=== PATIENT | male | born 1950 | race Caucasian/White ===

== ENCOUNTER 2024-04-17 05:56 | Day surgery (SDC) | payer MEDICARE, OTHER, SELFPAY ==
--- NOTE | 2024-03-19 11:21 | CM ---
Addendum entered by Briana Quintana 04/10/24 10:39:
Spoke again with patient. He has a rolling walker, firm cushion and cane. His is getting him a raised toilet seat, long handled sponge and grabber today.
Original Note:
Patient is scheduled for an elective L THR on 04/17/24- he is a same day patient. Spoke with patient prior to surgery. Patient had R TKR at (also as a same day patient) in 2019. Reintroduced role of Orthopedic Navigator. Patient reports that he
lives with his in a one story home. There is one step to enter. He currently functions independently. He has a cane and commode. He had VN services through [facility]. PCP is Hanny Marmolejo.
Discussed orthopedic program and post surgical plans. Reviewed that he will have VN services initially (medicare.gov website and ratings reviewed) and will then start outpatient PT. Patient selects [facility] (face sheet faxed to [facility] to facilitate
confirmation of benefits) for his home care needs and will go to [facility] for outpatient PT.
Patient is in agreement with plan and states that his will be home with him.
Patient will complete online education.
Plan: Orthopedic Navigator will remain available to assist with the care of patient and will reassess discharge needs after surgery.
[2024-03-27 07:02] VITALS: BMI 29.3
[2024-03-27 08:40] LABS: Hematocrit 39.8 % (39.0-52.0); Hemoglobin 13.5 g/dL (13.0-18.0); Mean Corp Hgb Conc. 33.9 g/dL (33.0-37.0); Mean Corpuscular Hgb 32.6 pg (27.0-31.0); Mean Corpuscular Volume 96.1 fL (80.0-94.0); Platelet Count 172 10^3/uL (130-400); Red Blood Cell Count 4.14 10^6/uL (4.70-6.10); Red Cell Dist. Width 12.9 % (11.5-14.5); White Blood Cell Count 6.7 10^3/uL (4.8-10.8)
[2024-03-27 09:14] LABS: ALT (SGPT) 80 U/L (0-50); AST (SGOT) 58 U/L (17-59); Albumin 4.1 g/dl (3.5-5.0); Alkaline Phosphatase 74 U/L (38-126); Blood Urea Nitrogen 20 mg/dl (9-20); Calcium 9.5 mg/dl (8.4-10.2); Carbon Dioxide 23 mmol/L (22-30); Chloride 102 mmol/L (98-107); Estimated Creatinine Clearance 88 ml/min; Glucose 264 mg/dl (70-99); Potassium 4.9 mmol/L (3.5-5.1); Sodium 136 mmol/L (135-145); Total Bilirubin 0.6 mg/dl (0.2-1.3); Total Protein 7.1 g/dl (6.3-8.2); eGFR > 60.00
[2024-03-27 12:02] LABS: Glycohemoglobin (HgbA1c) 7.6 % (4.0-5.6)
[2024-03-27 14:46] VITALS: BMI 29.3
--- NOTE | 2024-04-03 08:47 | SLEEP.APNEA ---
Sleep Apnea Order
-
Patient screened as High Risk for Sleep Apnea on Stop Bang Questionnaire. Patient referred to [facility] for Pre-Study.

Name: CODY OSBORNE
: 1950
Home Phone: Use [email or web address] instead
Cell Phone: [f_Reg Other Phone]

Address: [address] [place] [address]
City: [place]
State: [place]
Zip: [f_[facility] Zip]
Family Physician: Hanny Marmolejo
Height 6 ft
Actual Weight 98 kg
Body Mass Index (BMI) 29.3
Ordering Provider: Anita Avila PA-C
[2024-04-17] VITALS (15 sets, daily range): BP systolic 122–164; BP diastolic 66–93; PULSE 77; O2SAT 98
[2024-04-17] MEDS: TYLENOL 650 MG PO (06:21)
[2024-04-17] MEDS: CELEBREX 200 MG PO (06:22)
[2024-04-17] MEDS: NORMOSOL-R 1000 IV (06:25)
[2024-04-17 06:33] LABS: Glucose - Point of Care 222 mg/dl (70-99)
--- NOTE | 2024-04-17 06:50 | W.DS.TRANS ---
DC Summary - [employer]
-
Discharge Instructions:
Sleep Apnea Risk High
Discharge Diagnosis/Procedures Lionel Golden 04/17/24
Diet Diabetic, Carb Controlled
Activity With Walker
Driving Restrictions No driving
Instructions:
Stand-Alone Forms: SDS Total Hip and Knee D/C
Changes to Home Medications: Yes
Discharge Medications:
DC Medications w/original date entered in [employer]
Multivitamin 1 tab PO DAILY 12/01/12
famotidine 20 mg tablet 20 mg PO HS #30 tabs 10/01/20
metformin 500 mg tablet 1,000 mg PO BID 10/01/20
lisinopril 10 mg tablet 10 mg PO DAILY #30 tabs 10/28/20
glipizide 3 mg PO .BREAKFAST 03/21/24
guselkumab 100 mg/mL subcutaneous auto-injector (Tremfya) 100 mg SC Q8W 03/21/24
omega 2-tnv-cmw-fish oil 1,200 mg (144 mg-216 mg) capsule (Fish Oil) 1 cap PO DAILY 03/21/24
semaglutide 0.25 mg or 0.5 mg (2 mg/3 mL) subcutaneous pen injector (Ozempic) 0.25 mg SC QWEEK 03/21/24
simvastatin 40 mg tablet 40 mg PO HS 03/21/24
cefadroxil 500 mg capsule 500 mg PO BID infection prevention #14 caps 04/04/24
gabapentin 300 mg capsule 300 mg PO HS sleep/pain #10 caps 04/04/24
meloxicam 15 mg tablet 15 mg PO DAILY anti-inflammatory #14 tabs 04/04/24
mupirocin 2 % topical ointment 1 applic topical BID infection prevention #1 tube 04/04/24
ondansetron 4 mg disintegrating tablet 4 mg PO Q6H PRN n/v #20 tabs 04/04/24
tramadol 50 mg tablet 50 mg PO Q6H PRN 1 tab moderate pain, 2 if severe #30 tabs 04/04/24
acetaminophen 325 mg capsule (Tylenol) 650 mg (2 x 325 mg) PO QID #2 caps 04/17/24
acetaminophen 500 mg tablet 1,000 mg (2 x 500 mg) PO QID #60 tabs 04/17/24
aspirin 325 mg tablet 325 mg PO DAILY blood clot prevention #1 tab 04/17/24
docusate sodium 100 mg capsule (Colace) 100 mg PO BID stool softner #1 cap 04/17/24
glipizide 3 mg PO DAILY 04/17/24
magnesium hydroxide 400 mg/5 mL oral suspension (Milk of Magnesia) 30 ml PO HS PRN Constipation #1 mL 04/17/24
sennosides 8.6 mg tablet (Senokot) 17.2 mg (2 x 8.6 mg) PO BID laxative #2 tabs 04/17/24
Home Medication Changes
cefadroxil 500 mg capsule 500 mg PO BID infection prevention #14 caps 04/04/24
gabapentin 300 mg capsule 300 mg PO HS sleep/pain #10 caps 04/04/24
meloxicam 15 mg tablet 15 mg PO DAILY anti-inflammatory #14 tabs 04/04/24
mupirocin 2 % topical ointment 1 applic topical BID infection prevention #1 tube 04/04/24
ondansetron 4 mg disintegrating tablet 4 mg PO Q6H PRN n/v #20 tabs 04/04/24
tramadol 50 mg tablet 50 mg PO Q6H PRN 1 tab moderate pain, 2 if severe #30 tabs 04/04/24
Pending Results: No
[2024-04-17 08:49] LABS: Glucose - Point of Care 207 mg/dl (70-99)
[2024-04-17] MEDS: ANCEF 5 IV (10:53)
[2024-04-17] MEDS: ROXICODONE 5 MG PO (10:55)
--- NOTE | 2024-04-17 11:13 | CM ---
Addendum entered by DANA Cruz 04/17/24 13:25:
Patient did well with PT but patient not voiding so earliest discharge 3:30 today. sent TT update to home care team.
Original Note:
Patient had planned L THR today. Met with patient and at bedside to review discharge plans. Patient will be returning [facility] today [facility] On Sunday, 04/21, patient will start outpatient PT at [facility]. Reviewed MD follow
up in two weeks and patient is aware of need to schedule appointment.
Patient has his rolling walker here with him.
PT and VN were kept updated as to progress and discharge plans.
[2024-04-17] MEDS: LASIX 10 MG IV (14:31)
[2024-04-17] MEDS: FLOMAX 0.400000000000000022 MG PO (14:32)
--- NOTE | 2024-04-17 16:46 | OR.RPT ---
Operative Report
Operative Report
Orthopaedic Surgery Operative Note
DATE OF OPERATION: 04/17/2024
PREOPERATIVE DIAGNOSES: Osteoarthritis, left hip
POSTOPERATIVE DIAGNOSES: Same
OPERATION PERFORMED: Left total hip arthroplasty.
SURGEON: Galdino Golden MD
WIRE SPLICER: Roel Shepherd PA-C who helped with patient and limb positioning and retraction
ANESTHESIA: Spinal
COMPLICATIONS: None.
ESTIMATED BLOOD LOSS: 50 mL.
DRAINS: None
SPECIMEN: None
FINDINGS: Advanced articular cartilage wear on the femoral head and acetabulum.
IMPLANTS:
Mago Trilogy Acetabular Shell, cluster hole, size 60
Mago Trilogy Highly Crosslinked PE Liner, neutral
Mago M/L Taper femoral stem, size 11 with standard neck length and standard offset
Biolox Ceramic Head, size 40mm +0
INDICATIONS: The patient presented to my office with debilitating left hip pain due to osteoarthritis. We reviewed the natural history of this problem, as well as the risks, benefits, and alternatives of various treatment options. The patient
exhausted all nonoperative treatment options and wished to proceed with hip replacement surgery. The patient understood the risks which included, but were not limited to, bleeding, infection, failure to relieve pain, more pain than preop, damage to
blood vessels and nerves, need for reoperation, mechanical failure of the implants, wound healing problems, stiffness, instability, blood clot, pulmonary embolism, myocardial infarction, pneumonia, arrhythmia, CVA, and . The patient accepted
these risks and wished to proceed. All questions were answered, and informed consent was obtained.
PROCEDURE IN DETAIL: The patient was identified in the preoperative holding area. The left hip was identified as the operative site. The patient was taken in the operating room and transferred to the operative table. Spinal anesthesia was performed.
IV antibiotics and tranexamic acid were administered. The patient was placed in the lateral position with Stulberg hip positioners. Axillary roll was placed. The down leg was well padded. All bony prominences were well padded. The operative limb was
prepped and draped in the usual sterile fashion.
Time out was performed. A posterolateral approach to the hip was used. The skin incision was centered over the greater trochanter. This was taken down sharply through subcutaneous tissues. Meticulous hemostasis was achieved throughout the case with
electrocautery. We split the fascia anne in line with skin incision. I split the gluteus charlotte bluntly. We cauterized all crossing vessels as we split it. I palpated the sciatic nerve and made sure it was well posterior in the operative field. It
was protected throughout the case.
I performed a partial bursectomy to identify the short external rotators. The gluteus medius and minimus were identified and retracted anteriorly. I incised the piriformis tendon and conjoint tendon at their insertions. These were tagged for later
repair. I then performed a trapezoidal capsulotomy. The edges were tagged for later repair. I referenced the cut edge of the capsular flap to 2 fixed points on the greater trochanter for assistance with recreation of limb length and offset. I then
dislocated the hip posteriorly. I performed a femoral neck osteotomy approximately 10mm above the lesser trochanter, as per preoperative templating. The femoral head measured 55 mm in outer diameter. The distance between the neck cut and center of
the femoral head was measured to be 37.5mm. I placed a curve hohmann retractor over the anterior lip of the acetabulum between the labrum and the anterior hip capsule. A second retractor was placed inferiorly just distal to the transverse acetabular
ligament. Circumferential view of the acetabulum was achieved. I incised the labrum and pulvinar with electrocautery. I started with a 55 mm reamer and reamed down to the medial wall. I then sequentially reamed up to a 59mm reamer. This gave a nice
bed of bleeding bone with excellent column support anteriorly and posteriorly. I impacted the acetabular shell in approximately 40 degrees of abduction and 20 degrees of anteversion. I matched the anteversion of the transverse acetabular ligament. I
also made sure that the anterior rim of the socket was not proud of the anterior wall to minimize the chance of iliopsoas tendinitis. I confirmed the cup was well-seated. I then impacted a neutral liner and confirmed it was well seated with the
locking mechanism.
On the femoral side, I use a box osteotome to open the proximal starting point. I found the canal with a Charnley awl and a lateralizing reamer. I then used the Mago M/L taper broaches sequentially to prepare the femoral canal. The size 11 came to
a stop at the desired level and had excellent axial and rotational stability. We trialed with a trial ball head. The hip was taken through a complete range of motion. It was noted to be stable in extension without impingement. It was stable in the
position of sleep and in flexion with internal rotation. The limb length and offset were checked compared to the capsular flap and was appropriate. The measured length between the neck cut and center of the femoral head was 40mm.
I removed the trials. I impacted the femoral implant to match the [place] version. It had excellent axial and rotational stability. Trial ball head was placed, and I reduced the hip and took the hip through a complete range of motion. There was no
impingement in external rotation and extension. Position of sleep was stable. At 90 degrees of flexion and slight adduction, the hip could be internally rotated to 90 degrees with no subluxation. I palpated the sciatic nerve, which was tension free
and unharmed. Based on our capsular flap measurement, we had restored the offset and leg length. The trial ball head was removed, and the final ball head was impacted onto a clean and dry Wei taper. The hip was reduced.
A dilute betadine soak was performed for approximately 3 minutes, and then the hip was copiously irrigated. I repaired the capsule, piriformis, and conjoint tendon with #2 Ethibond to drill holes in the greater trochanter. Local anesthetic was
injected. The fascia anne was closed with #1 PDS in running fashion. The subcutaneous tissues were closed with 2-0 PDS in running fashion. The skin was reapproximated with 3-0 Monocryl subcuticular suture. I placed a Prineo dressing followed by a
Mepilex Ag dressing. The patient awoke from anesthesia without difficulty. Sponge and instrument counts were correct x2 at the end of the case.
I was present and participated in the entire procedure. I checked leg length at the ankles after transfer on the bed which was equal. The patient was sent to the recovery room in stable condition.
Andrew Golden MD
== END 2024-04-17 15:28 | disposition home or self-care (01) ==
LOC: SDS 05:56
PROVIDERS: ATTENDING PHYSICIAN Orthopaedic Surgery; FAMILY PHYSICIAN Physician Assistant Medical; OTHER PHYSICIAN Physician Assistant Medical
DX: M16.12 Unilateral primary osteoarthritis, left hip (principal)
CPT/HCPCS: 27130; 36415; 73502; 80053; 82962; 83036; 85027; 87070; 93005; 97161; C1776

== ENCOUNTER 2024-04-23 10:40 | Emergency (ER) | payer MEDICARE, OTHER, SELFPAY ==
[2024-04-23 10:54] VITALS: BP 133/71
[2024-04-23 11:36] LABS: Urine Albumin Trace (Neg - Trace); Urine Bilirubin Negative (Negative); Urine Character Slightly Cloudy (Clear); Urine Color Yellow; Urine Glucose 3+ (Negative); Urine Ketone Negative (Negative); Urine Leukocyte Trace (Negative); Urine Nitrite Negative (Negative); Urine Occult Blood 4+ (Negative); Urine Specific Gravity 1.015 (<1.030); Urine Urobilinogen Negative (Neg - 1+)
--- NOTE | 2024-04-23 11:59 | ED.GENMED ---
History of Present Illness
General
Chief Complaint: Urinary Symptoms
Source: patient and spouse
Time Seen by Provider: 04/23/24 11:13
Travel History
Have you had any contact with someone who has COVID-19?: No
Do you have any symptoms of coronavirus? Fever > 100 degrees, chills, cough, shortness of breath, sore throat, loss of taste or smell, muscle aches, or headache?: No
History of Present Illness
History of Present Illness:
73-year-old male with past medical history of hypertension, hyperlipidemia, diabetes, status post left hip replacement this past presenting to the emergency department for evaluation of hematuria that is been ongoing for 3 days, today
seemingly worse. Saw primary care provider yesterday who ordered labs but patient is unsure of these results. Due to persistent nature of the symptoms was recommended to come to the ER for further evaluation. Patient does note some mild
discomfort to the urethral meatus and states he felt a sensation of incomplete bladder emptying yesterday and upon trying to urinate more states it was just blood. Denies any testicular pain or edema. No fevers, chills, rigors. Social history was
negative for any cigarettes or tobacco use. Family history was noncontributory for any urological cancers.
Past History
Past History
ED Past Medical History: HTN, Hypercholesterolemia, NIDDM and Other (Osteoarthritis)
ED Past Surgical History: Orthopedic
Social History
Tobacco: Non-smoker
Alcohol: None
Drug: None
Personal:
Living: with family
Review of Systems
Review of Systems
All Other Systems: ROS reviewed and negative except as documented in HPI and ROS
Phy Exam
Physical Exam
Physical Exam:
GENERAL: Alert , in no apparent distress
EYE: clear conjunctiva b/l
HEAD: NCAT
ENT: o/p clr, mmm.
CARDIAC: Regular rate and rhythm .
LUNGS: Clear breath sounds bilaterally, no acute respiratory distress, no wheezes/rales/rhonchi
ABDOMEN: Soft, without focal tenderness, no r/g, no cvat, easily reducible small umbilical hernia
NEUROLOGICAL: Alert and oriented
SKIN: Warm and dry, skin intact.
MUSCULOSKELETAL: well perfused.
PSYCH: Normal and appropriate interaction.
Scores
Heart Failure Risk
Heart Failure Risk Score: Not Applicable
Heart Score for Chest Pain Patients
STEMI patient?: Not applicable
Withdrawal Assessment of Alcohol
Withdrawal Assessment Completed?: Not applicable
Course
Orders/Labs/Results
Orders:
Orders
04/23/24 11:20
UA Reflex to Culture [Urinalysis Reflex To Culture] Urgent
Date Specimen was Collected: 04/23/24
Time Specimen was Collected: 11:12
Urine Microscopic Reflex Cult Urgent
04/23/24 11:35
CT Abd/pel Without Iv Or Oral Urgent
Comment:
Reason For Exam: hematuria
04/23/24 11:56
Basic Metabolic Panel Urgent
Complete Blood Count/With Diff Urgent
Abnormal Lab Results
04/23/24 04/23/24
11:20 11:56
RBC 3.58 L 10^6/uL
(4.70-6.10)
Hgb 11.5 L g/dL
(13.0-18.0)
Hct 34.1 L %
(39.0-52.0)
MCV 95.3 H fL
(80.0-94.0)
MCH 32.1 H pg
(27.0-31.0)
MPV 11.1 H fL
(7.4-10.4)
Lymphocytes % 18.0 L %
(20.5-51.1)
Sodium 134 L mmol/L
(135-145)
Potassium 5.2 H mmol/L
(3.5-5.1)
Glucose 235 H mg/dl
(70-99)
Ur Occult Blood Reflex 4+ A
(Negative)
Leukocyte Esterase Rfl Trace A
(Negative)
Urine RBC >100 A /HPF
(0-2)
Urine Glucose 3+ A
(Negative)
04/23/24 11:56
04/23/24 11:56
Vital Signs
Initial and Last Documented VS:
Initial Vital Signs
Temp Pulse Resp BP Pulse Ox
97.7 F 87 18 133/71 98
04/23/24 10:54 04/23/24 10:54 04/23/24 10:54 04/23/24 10:54 04/23/24 10:54
Last Documented Vital Signs
Temp Pulse Resp BP Pulse Ox
97.7 F 87 18 133/71 98
04/23/24 10:54 04/23/24 10:54 04/23/24 10:54 04/23/24 10:54 04/23/24 10:54
MDM/Problems Addressed
Differential Diagnosis Includes:
Cystitis, prostatitis, BPH, malignancy
MDM/Problems Addressed:
73-year-old male present emergency department for evaluation of painless hematuria x 3 days. Seen by primary care yesterday and had labs done but no other findings. Arrives to the ER hemodynamically stable and in no acute distress. Denies any
pain. Will check urinalysis and labs. Noncontrast CT ordered. Disposition pending.
*Radiology
Radiology exam reviewed: radiology read reviewed
*Pulse Oximetry
Patient hypoxic: no
*Critical Care Note
Total Time (30-74mins, 75-104mins- exclusive of procedures): Not Applicable
Data Reviewed
Review of Other/Old Records Reveals: Labs
Patient Management
Escalation/DeEscalation of care consider admission/obs:
Patient CT without any acute findings. He is afebrile, no leukocytosis, hemodynamically stable and urine is without any signs of infection. Provided patient with information for outpatient urology follow-up. Aware of return precautions for any
increased pain, fevers, vomiting or any other concerns he may have. Stable for discharge home.
ED Attending Note
-
Portions of this chart may have been created with voice recognition software.� Occasional wrong word or��sound alike� substitutions may have occurred due to the inherent limitations of voice recognition software.
Discharge Plan
Departure
Patient Disposition: Home (Routine Discharge)
Date of Disposition: 04/23/24
Time of Disposition: 12:54
Patient with high blood pressure during this ER visit?: No
Discharge Problem:
Hematuria
Instructions: Blood in the Urine (Hematuria), Adult (DC)
Prescriptions:
No Action
Multivitamin
1 tab PO DAILY
metformin 500 MG tablet
1,000 mg PO BID
simvastatin 40 mg Tablet
40 mg PO HS
omega 0-pry-mps-fish oil [Fish Oil] 1,200 (144-216) mg Capsule
1 cap PO DAILY
Hold Instructions: Resume on 04/24/24.
Ozempic 0.25 mg or 0.5 mg (2 mg/3 mL) Pen Injector
0.25 mg SC QWEEK
Rx Instructions:
for 4 weeks
glipizide
3 mg PO .BREAKFAST
cefadroxil 500 mg capsule
500 mg PO BID Qty: 14 0RF
Rx Instructions:
*Take w/ food
*Take w/ probiotic
*POST-OP USE
gabapentin 300 mg capsule
300 mg PO HS Qty: 10 0RF
meloxicam 15 mg tablet
15 mg PO DAILY Qty: 14 0RF
Rx Instructions:
take with food
post-op
mupirocin 2 % ointment
1 applic topical BID Qty: 1 0RF
Patient Comments:
pt states his last dose was this am, 04/17/24
tramadol 50 mg tablet
50 mg PO Q6H PRN (Reason: 1 tab moderate pain, 2 if severe) Qty: 30 0RF
Rx Instructions:
ongoing therapy
glipizide
3 mg PO DAILY
Patient Comments:
pt states he now takes the Glipizide every breakfast and dinner.
aspirin 325 mg tablet
325 mg PO DAILY Qty: 1 0RF
Rx Instructions:
Take with food
magnesium hydroxide [Milk of Magnesia] 400 mg/5 mL suspension
30 ml PO HS PRN (Reason: Constipation) Qty: 1 0RF
docusate sodium [Colace] 100 mg capsule
100 mg PO BID Qty: 1 0RF
acetaminophen [Tylenol] 325 mg capsule
650 mg PO QID Qty: 2 0RF
acetaminophen 500 MG tablet
1,000 mg PO QID Qty: 60 0RF
Rx Instructions:
Do not exceed >4000 mg daily.
tamsulosin [Flomax] 0.4 mg capsule
0.4 mg PO HS Qty: 5 0RF
lisinopril 10 MG tablet
40 mg PO DAILY
Rx Instructions:
Hold if systolic blood pressure <130 while on Tramadol
Referrals:
Hanny Marmolejo PA-C [Family Provider] -
Yang Barboza MD [Active] - (Urology)
Interventions
Interventions:
*Risk Screen - Suicide Last Done: 04/23/24 11:28
*General Assessment Last Done: 04/23/24 11:28
*Neglect/Abuse Screening Last Done: 04/23/24 11:28
ED- Fall Risk Assessment Last Done: 04/23/24 13:03
*ED COVID-19 Vaccine History Last Done: 04/23/24 10:54
*Nursing Disposition Last Done: 04/23/24 13:03
ED-Male Genitourinary Assessment Last Done: 04/23/24 11:28
Discharge Date and Time
Discharge Date/Time: 04/23/24 13:03
Print Language: URDU
[2024-04-23 12:03] LABS: Urine Red Blood Cell >100 /HPF (0-2); Urine White Cell 0-2 /HPF (0-5)
[2024-04-23 12:08] LABS: % Basophils 0.7 % (0-2); % Eosinophils 3.3 % (0-6); % Immature Granulocytes 0.5 % (0-0.5); % Monocytes 6.8 % (1.7-9.3); % Neutrophils 70.7 % (42.2-75.2); Absolute Basophils 0.1 10^3/uL (0-0.2); Absolute Eosinophils 0.3 10^3/uL (0-0.7); Absolute Lymphocytes 1.4 10^3/uL (1.2-3.4); Absolute Monocytes 0.5 10^3/uL (0.1-0.6); Absolute Neutrophils 5.3 10^3/uL (1.4-6.5); Hematocrit 34.1 % (39.0-52.0); Hemoglobin 11.5 g/dL (13.0-18.0); Mean Corp Hgb Conc. 33.7 g/dL (33.0-37.0); Mean Corpuscular Hgb 32.1 pg (27.0-31.0); Mean Corpuscular Volume 95.3 fL (80.0-94.0); Mean Platelet Volume 11.1 fL (7.4-10.4); Nucleated Red Blood Cells % 0 % (-); Platelet Count 189 10^3/uL (130-400); Red Blood Cell Count 3.58 10^6/uL (4.70-6.10); Red Cell Dist. Width 12.7 % (11.5-14.5); White Blood Cell Count 7.5 10^3/uL (4.8-10.8)
[2024-04-23 12:22] LABS: Blood Urea Nitrogen 20 mg/dl (9-20); Calcium 9.7 mg/dl (8.4-10.2); Carbon Dioxide 22 mmol/L (22-30); Glucose 235 mg/dl (70-99); Potassium 5.2 mmol/L (3.5-5.1); Sodium 134 mmol/L (135-145); eGFR > 60.00
[2024-04-23 12:47] LABS: Chloride 102 mmol/L (98-107)
== END 2024-04-23 13:03 | disposition home or self-care (01) ==
LOC: EMR 10:40
PROVIDERS: Physician Assistant Medical; EMERGENCY PHYSICIAN Emergency Medicine; FAMILY PHYSICIAN Physician Assistant Medical
DX: R31.9 Hematuria, unspecified (principal); I10 Essential (primary) hypertension; E78.00 Pure hypercholesterolemia, unspecified; E11.9 Type 2 diabetes mellitus without complications; M19.90 Unspecified osteoarthritis, unspecified site; Z79.82 Long term (current) use of aspirin; Z96.642 Presence of left artificial hip joint
CPT/HCPCS: 99284; 74176; 80048; 81003; 81015; 85025

== ENCOUNTER → 2024-08-18 14:30 | Outpatient (REF) | payer MEDICARE, OTHER, SELFPAY | LOC: HWRAD 14:30 | PROVIDERS: ATTENDING PHYSICIAN Physician Assistant Medical | DX: R04.2 Hemoptysis (principal) | CPT/HCPCS: 71046 ==

== ENCOUNTER → 2025-01-28 16:13 | Outpatient (REF) | payer MEDICARE, OTHER, SELFPAY | LOC: RCS 16:13 | PROVIDERS: ATTENDING PHYSICIAN Physician Assistant Medical | DX: E11.65 Type 2 diabetes mellitus with hyperglycemia (principal); I10 Essential (primary) hypertension; R94.31 Abnormal electrocardiogram [ECG] [EKG] | CPT/HCPCS: 93306 ==

== ENCOUNTER → 2025-05-11 13:50 | Outpatient (REF) | payer MEDICARE, OTHER, SELFPAY | LOC: HWRAD 13:50 | PROVIDERS: ATTENDING PHYSICIAN Physician Assistant | DX: R04.2 Hemoptysis (principal) | CPT/HCPCS: 71046 ==

== ENCOUNTER → 2025-08-24 07:48 | Outpatient (REF) | payer MEDICARE, OTHER, SELFPAY | LOC: HWRCS 07:48 | PROVIDERS: ATTENDING PHYSICIAN Internal Medicine Cardiovascular Disease; FAMILY PHYSICIAN Physician Assistant Medical | DX: I42.9 Cardiomyopathy, unspecified (principal); R06.09 Other forms of dyspnea | CPT/HCPCS: 78452; 93017; A9500 ==

== ENCOUNTER → 2025-09-28 09:23 | Outpatient (REF) | payer MEDICARE, OTHER, SELFPAY | LOC: RCS 09:23 | PROVIDERS: ATTENDING PHYSICIAN Internal Medicine Cardiovascular Disease; FAMILY PHYSICIAN Physician Assistant Medical | DX: I10 Essential (primary) hypertension (principal); I35.0 Nonrheumatic aortic (valve) stenosis; I51.9 Heart disease, unspecified | CPT/HCPCS: 83520; 84156; 86335; 93306; 93356 ==

== ENCOUNTER → 2025-10-09 08:12 | Outpatient (REF) | payer MEDICARE, OTHER, SELFPAY | LOC: RAD 08:12 | PROVIDERS: ATTENDING PHYSICIAN Internal Medicine Cardiovascular Disease; FAMILY PHYSICIAN Physician Assistant Medical | DX: I51.9 Heart disease, unspecified (principal) | CPT/HCPCS: 78803; A9538 ==